=== PATIENT | female | born 1990 | race Caucasian/White ===

== ENCOUNTER 2018-03-11 09:42 | Emergency (ER) | payer SELFPAY ==
[~2018-03-11] VITALS: Ht 152.4 cm; Wt 50.0 kg
[2018-03-11 11:58] VITALS: BP 116/78
== END 2018-03-11 12:05 | disposition home or self-care (01) ==
LOC: ER 09:42
DX: R55 Syncope and collapse (principal); E86.0 Dehydration
CPT/HCPCS: 82962; 93005; 99283